=== PATIENT | female | born 1935 | race Caucasian/White ===

== ENCOUNTER 2016-10-25 09:08 | Emergency (ER) | payer OTHER, MEDICARE, BC ==
[2016-10-25] MEDS ORDERED: NAPROXEN 250 MG TABLET PO ONE (10:07)
--- NOTE | 2016-10-25 10:22 | ER Document Report ---
ED Extremity Problem, Upper - General Chief Complaint: Arm Pain Stated Complaint: LEFT ARM PAIN Notes: The patient is a 81-year-old female, past medical history hypertension, prior left shoulder pain from rotator cuff injury 4 years ago, presents with 1 day of left shoulder pain that started when she woke up this morning. She says the pain is worse when she moves. She did not take her blood pressure medications this morning and did not take any anti-inflammatories this morning. Denies numbness, tingling, injury, chest pain, shortness of breath, back pain, nausea or vomiting. TRAVEL OUTSIDE OF THE [place] IN LAST 30 DAYS: No - Related Data Allergies/Adverse Reactions: iodine Allergy (Verified 10/25/16 09:24) Penicillins Allergy (Verified 10/25/16 09:24) Past Medical History - General Information source: Patient - Social History Smoking Status: Former Smoker Chew tobacco use (# tins/day): No Frequency of alcohol use: None Drug Abuse: None Family History: Reviewed & Not Pertinent - Past Medical History Cardiac Medical History: Reports: Hx Hypercholesterolemia, Hx Hypertension Pulmonary Medical History: Reports: Hx COPD Endocrine Medical History: Comment Only: Hx Diabetes Mellitus Type 2 - prediabetes Renal/ Medical History: Denies: Hx Peritoneal Dialysis Past Surgical History: Reports: Hx Abdominal Surgery - hernia repair, Hx Appendectomy, Hx Cholecystectomy, Hx Gynecologic Surgery - hysterectomy, Hx Hysterectomy, Hx Orthopedic Surgery - ankle - Immunizations Hx Diphtheria, Pertussis, Tetanus Vaccination: Yes Review of Systems - Review of Systems Notes: REVIEW OF SYSTEMS: CONSTITUTIONAL: -fevers, -chills EENT: -eye pain, -difficulty swallowing, -nasal congestion CARDIOVASCULAR:-chest pain, -syncope. RESPIRATORY: -cough, -SOB GASTROINTESTINAL: -abdominal pain, - nausea, -vomiting, -diarrhea GENITOURINARY: -dysuria, -hematuria MUSCULOSKELETAL: +left shoulder pain, -back pain, -neck pain SKIN: -rash or skin lesions. HEMATOLOGIC: -easy bruising or bleeding. LYMPHATIC: -swollen, enlarged glands. NEUROLOGICAL: -altered mental status or loss of consciousness, -headache, - neurologic symptoms PSYCHIATRIC: -anxiety, -depression. ALL OTHER SYSTEMS REVIEWED AND NEGATIVE. Physical Exam - Vital signs Vitals: Temp Pulse Resp BP Pulse Ox 97.3 F 89 18 166/65 H 98 10/25/16 09:20 10/25/16 09:20 10/25/16 09:20 10/25/16 09:20 10/25/16 09:20 - Notes Notes: PHYSICAL EXAMINATION: GENERAL: Well-appearing, well-nourished and in no acute distress. HEAD: Atraumatic, normocephalic. EYES: Pupils equal round and reactive to light, extraocular movements intact, sclera anicteric, conjunctiva are normal. ENT: nares patent, oropharynx clear without exudates. Moist mucous membranes. NECK: Normal range of motion, supple without lymphadenopathy LUNGS: Breath sounds clear to auscultation bilaterally and equal. No wheezes rales or rhonchi. HEART: Regular rate and rhythm without murmurs ABDOMEN: Soft, nontender, normoactive bowel sounds. No guarding, no rebound. No masses appreciated. EXTREMITIES: Tenderness over left anterior shoulder and AC joint, painful shoulder flexion and extension, strong distal pulses, no pitting or edema. No cyanosis. NEUROLOGICAL: Cranial nerves grossly intact. Normal speech, normal gait. Normal sensory, motor, and reflex exams. PSYCH: Normal mood, normal affect. SKIN: Warm, Dry, normal turgor, no rashes or lesions noted. Course - Re-evaluation Re-evalutation: Shoulder x-ray does not show any acute fractures. Prior shoulder x-ray showed rotator cuff injuries and AC joint inflammation. EKG does not show any evidence of acute ACS. Instructed patient to begin anti-inflammatories, take her blood pressure medications when she gets home and follow-up with orthopedics if her pain does not improve. - Vital Signs Vital signs: Temp Pulse Resp BP Pulse Ox 97.3 F 89 18 166/65 H 98 10/25/16 09:20 10/25/16 09:20 10/25/16 09:20 10/25/16 09:20 10/25/16 09:20 - Diagnostic Test Radiology reviewed: Image reviewed, Reports reviewed Radiology results interpreted by me: Left shoulder x-ray: NAD - EKG Interpretation by Me EKG shows normal: Sinus rhythm, [place], Intervals, QRS Complexes, ST-T Waves Rate: Normal Discharge - Discharge Clinical Impression: Left shoulder pain Qualifiers: Chronicity: unspecified Qualified Code(s): M25.512 - Pain in left shoulder Condition: Stable Disposition: HOME, SELF-CARE Additional Instructions: Take Naprosyn with food to help with your shoulder pain. Follow-up with the orthopedic surgeon for further evaluation and treatment. SPRAIN: Your injury is a sprain. A sprain results from stretching or tearing of the ligaments, usually from a twisting injury. The ligaments will require time and protection in order to heal properly. Many sprains are quite disabling and should be taken seriously. The usual initial treatment of sprains is cold packs, elevation, and rest of the injured area. Your physician has assessed the seriousness of your ligament injury, and has outlined a treatment plan. Understand that this treatment may change, depending on how you progress. If a re-examination was recommended, it is important that you follow up as instructed. Call the doctor any time if there is severe pain, numbness, or loss of function in the injured area. ICE & ELEVATION: Apply ice packs frequently against the painful area. Many different schedules are recommended, such as "20 minutes on, 20 minutes off" or "one hour ice, two hours rest." If you need to work, you may need to go longer between ice treatments. You should plan to have the area ice packed AT LEAST one- fourth of the time. The ice should be applied over the wrap, tape, or splint, or over a layer of cloth -- not directly against the skin. Some ice bags have a built-in cloth and can be put directly on the skin. Your injured part should be elevated as much as possible over the next 48 hours. Try to keep the injury above the level of the heart. Avoid use of the injured area. Elevation and rest will decrease the swelling. USE OF [id number] IBUPROFEN: Ibuprofen (Advil, Nuprin, Medipren, Motrin IB) is a medication for fever and pain control. In addition, it has anti- inflammatory effects which may be beneficial, especially in the treatment of injuries. It's best to take ibuprofen with food. Persons with ulcer disease or allergy to aspirin should notify their physician of this before taking ibuprofen. Ibuprofen can be given every four to six hours, for a total of four doses daily. Age Pain or fever dose Antiinflammatory dose 6-8 yr 200 mg (1 tab) 200 mg (1 tab) 9-11 yr 200 mg (1 tab) 200-400 mg (1-2 tab) 11-14 yr 200-400 mg (1-2 tab) 400 mg (2 tab) 15-adult 400 mg (2 tab) 600 mg (3 tab) FOLLOW-UP CARE: If you have been referred to a physician for follow-up care, call the physician s office for an appointment as you were instructed or within the next two days. If you experience worsening or a significant change in your symptoms, notify the physician immediately or return to the Emergency Department at any time for re-evaluation. Referrals: SILVIA FRITZ, [ACTIVE STAFF] - Follow up as needed
[2016-10-25 11:43] VITALS: BP 147/70
--- NOTE | 2016-10-25 22:20 | EKG REPORT ---
SEVERITY:- NORMAL ECG - SINUS RHYTHM : Confirmed by: Howard Forte MD 25-Oct-2016 17:30:23
== END 2016-10-25 11:43 | disposition home or self-care (01) ==
LOC: ER 09:08
DX: M25.512 Pain in left shoulder (principal); J44.9 Chronic obstructive pulmonary disease, unspecified; Z87.891 Personal history of nicotine dependence; Z90.710 Acquired absence of both cervix and uterus; Z90.49 Acquired absence of other specified parts of digestive tract; Z87.442 Personal history of urinary calculi; Z88.0 Allergy status to penicillin
CPT/HCPCS: 93005; 93010; 99284

== ENCOUNTER 2019-03-06 10:32 | Observation (INO) | payer BC, MEDICARE, OTHER ==
[2019-03-06] MEDS ORDERED: ASPIRIN 81 MG TABLET, CHEWABLE PO ONE (10:57)
--- NOTE | 2019-03-06 11:01 | ER Document Report ---
ED Medical Screen (RME) - General Chief Complaint: Chest Pain Stated Complaint: CHEST PAIN Time Seen by Provider: 03/06/19 10:50 Primary Care Provider: EDOUARD MCALLISTER [Primary Care Provider] - Follow up as needed Notes: Patient is an 84-year-old female who presents to the emergency department with a chief complaint of on-and-off chest pain. She has had her pain for the past week and she states that she feels that they are "twinges" in her chest. She denies any nausea or vomiting. Denies any prior history of a myocardial infarction. 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 Denies any shortness of breath or difficulty breathing. Patient has past medical history of diabetes, hypertension, COPD, insomnia, renal cysts. Exam: S1, S2. I have greeted and performed a rapid initial assessment of this patient. A comprehensive ED assessment and evaluation of the patient, analysis of test results and completion of medical decision making process will be conducted by an additional ED providers. TRAVEL OUTSIDE OF THE [place] IN LAST 30 DAYS: No - Related Data Allergies/Adverse Reactions: iodine Allergy (Verified 10/25/16 09:24) Penicillins Allergy (Verified 10/25/16 09:24) Past Medical History - Past Medical History Cardiac Medical History: Reports: Hx Hypercholesterolemia, Hx Hypertension Pulmonary Medical History: Reports: Hx COPD Endocrine Medical History: Comment Only: Hx Diabetes Mellitus Type 2 - prediabetes Renal/ Medical History: Denies: Hx Peritoneal Dialysis Past Surgical History: Reports: Hx Abdominal Surgery - hernia repair, Hx Appendectomy, Hx Cholecystectomy, Hx Gynecologic Surgery - hysterectomy, Hx Hysterectomy, Hx Orthopedic Surgery - ankle - Immunizations Hx Diphtheria, Pertussis, Tetanus Vaccination: Yes Physical Exam - Vital signs Vitals: Temp Pulse Resp BP Pulse Ox 97.9 F 82 17 169/80 H 96 03/06/19 10:44 03/06/19 10:44 03/06/19 10:44 03/06/19 10:44 03/06/19 10:44 Course - Vital Signs Vital signs: Temp Pulse Resp BP Pulse Ox 97.9 F 82 17 169/80 H 96 03/06/19 10:44 03/06/19 10:44 03/06/19 10:44 03/06/19 10:44 03/06/19 10:44 Doctor's Discharge - Discharge Referrals: LOCALMD,NO [Primary Care Provider] - Follow up as needed
--- NOTE | 2019-03-06 11:51 | RADIOLOGY REPORT (SQ) ---
EXAM DESCRIPTION: CHEST SINGLE VIEW COMPLETED DATE/TIME: 03/06/2019 11:30 am REASON FOR STUDY: chest pain COMPARISON: 10/24/2011. EXAM PARAMETERS: NUMBER OF VIEWS: One view. TECHNIQUE: Single frontal radiographic view of the chest acquired. RADIATION DOSE: NA LIMITATIONS: None. FINDINGS: LUNGS AND PLEURA: No opacities, masses or pneumothorax. No pleural effusion. MEDIASTINUM AND HILAR STRUCTURES: No masses. Contour normal. HEART AND VASCULAR STRUCTURES: Heart upper limits of normal in size. Normal vasculature. BONES: No acute findings. HARDWARE: None in the chest. OTHER: No other significant finding. IMPRESSION: NO ACUTE RADIOGRAPHIC FINDING IN THE CHEST. TECHNICAL DOCUMENTATION: JOB ID: [id number] [employer]- All Rights Reserved Reading location - IP/workstation name: [email or web address]
--- NOTE | 2019-03-06 12:22 | ER Document Report ---
ED Cardiac - General Chief Complaint: Chest Pain Stated Complaint: CHEST PAIN Time Seen by Provider: 03/06/19 10:50 Primary Care Provider: EDOUARD MCALLISTER [NO LOCAL MD] - Follow up as needed TRAVEL OUTSIDE OF THE [place] IN LAST 30 DAYS: No - HPI Notes: Patient is a 84-year-old female that presents to the emergency department for chief complaint of chest pain. Patient reports being woken from sleep with a left-sided chest pain around 4 AM this morning. The pain was constant until about 1130. Currently she states the pain is gone. She describes it as a sharp sensation just to the left of her sternum. It did not radiate. She denied associated shortness of breath diaphoresis nausea or vomiting. Patient denies history of heart catheterization or bypass. She states she was told she had a mild IN a few years ago. She believes she had a heart catheterization in January 2018 that was normal. She denies any recent surgery, travel, immobilization, lower extremity pain or swell ing, and history of DVT/PE. Patient states that she had been having chest pain similar to this intermittently over the last week but it became more constant today. Past Medical History: Diabetes, hypertension, hyperlipidemia, COPD Past Surgical History: Cholecystectomy, appendectomy, hysterectomy, hernia repair Social History: Quit tobacco use 4 years ago. Denies alcohol use. Lives at home independently Family History: Reviewed and noncontributory for presenting illness Allergies: Reviewed, see documented allergy list. REVIEW OF SYSTEMS: CONSTITUTIONAL : No fever No chills No diaphoresis No recent illness EENT: No vision changes No congestion No sore throat CARDIOVASCULAR: chest pain No palpitations RESPIRATORY: No shortness of breath No cough No difficulty breathing GASTROINTESTINAL: No abdominal pain No nausea No vomiting No diarrhea GENITOURINARY: No dysuria No hematuria No difficulty urinating MUSCULOSKELETAL: No back pain No leg pain No arm pain SKIN: No rashes No lesions LYMPHATIC: No swollen, enlarged glands. NEUROLOGICAL: No lightheadedness No headache No weakness No paresthesias PSYCHIATRIC: No anxiety No depression PHYSICAL EXAMINATION: Vital signs reviewed, nursing noted reviewed. GENERAL: Well-appearing, well-nourished and in no acute distress. HEAD: Atraumatic, normocephalic. EYES: Eyes appear normal, extraocular movements intact, sclera anicteric, conjunctiva are normal. ENT: nares patent, oropharynx clear without exudates. Moist mucous membranes. NECK: Normal range of motion, supple without lymphadenopathy LUNGS: Mild sternal and left anterior chest wall tenderness without crepitus or deformity, breath sounds clear to auscultation bilaterally and equal. No wheezes rales or rhonchi. HEART: Regular rate and rhythm without murmurs, +2/4 bilateral radial pulses ABDOMEN: Soft, nontender, normoactive bowel sounds. No rebound, guarding, or rigidity. No masses appreciated. EXTREMITIES: Nontender, good range of motion, no pitting or edema. NEUROLOGICAL: No focal neurological deficits. Moves all extremities spontaneously Motor and sensory grossly intact on exam. PSYCH: Normal mood, normal affect. SKIN: Warm, Dry, normal turgor, no rashes or lesions noted on exposed skin - Related Data Allergies/Adverse Reactions: iodine Allergy (Verified 10/25/16 09:24) Penicillins Allergy (Verified 10/25/16 09:24) Past Medical History - Social History Smoking Status: Former Smoker - quit 4 years ago Family History: Reviewed & Not Pertinent - Past Medical History Cardiac Medical History: Reports: Hx Hypercholesterolemia, Hx Hypertension Pulmonary Medical History: Reports: Hx COPD Endocrine Medical History: Comment Only: Hx Diabetes Mellitus Type 2 - pre diabetes Renal/ Medical History: Denies: Hx Peritoneal Dialysis Past Surgical History: Reports: Hx Abdominal Surgery - hernia repair, Hx Appendectomy, Hx Cholecystectomy, Hx Gynecologic Surgery - hysterectomy, Hx Hysterectomy, Hx Orthopedic Surgery - ankle - Immunizations Hx Diphtheria, Pertussis, Tetanus Vaccination: Yes Physical Exam - Vital signs Vitals: Temp Pulse Resp BP Pulse Ox 97.9 F 82 17 169/80 H 96 03/06/19 10:44 03/06/19 10:44 03/06/19 10:44 03/06/19 10:44 03/06/19 10:44 Course - Re-evaluation Re-evalutation: 03/06/19 12:20 Vitals reviewed. Nursing notes reviewed. Patient is chest pain-free on my evaluation. She did receive aspirin in triage. She is on telemetry monitoring. Patient's EKG shows no significant change from prior on 10/25/2016. 03/06/19 13:25 Patient reevaluated and has remained pain-free since my initial evaluation. Her cardiac work-up shows a negative first troponin. She has no severe anemia. Her chest x-ray shows no acute cardiopulmonary process. Patient's heart score is 5 and she will be admitted to the hospital for further cardiac evaluation. Her care was discussed with Dr. Cervantes. Laboratory 03/06/19 03/06/19 03/06/19 12:02 12:02 12:02 WBC 8.2 RBC 4.29 Hgb 13.3 Hct 39.0 MCV 91 MCH 31.0 MCHC 34.1 RDW 12.9 Plt Count 319 Seg Neutrophils % 74.3 Lymphocytes % 15.5 Monocytes % 8.9 Eosinophils % 0.7 Basophils % 0.6 Absolute Neutrophils 6.1 Absolute Lymphocytes 1.3 Absolute Monocytes 0.7 Absolute Eosinophils 0.1 Absolute Basophils 0.0 Sodium 136.5 L Potassium 4.5 Chloride 99 Carbon Dioxide 29 Anion Gap 9 BUN 18 Creatinine 1.10 Est GFR ( Amer) 58 L Est GFR (Non-Af Amer) 48 L Glucose 149 H Calcium 9.0 Total Bilirubin 0.4 Direct Bilirubin 0.3 Neonat Total Bilirubin Not Reportable Neonat Direct Bilirubin Not Reportable Neonat Indirect Bili Not Reportable AST 22 ALT 16 Alkaline Phosphatase 78 Troponin I < 0.012 Total Protein 6.5 Albumin 3.6 Chest X-Ray 03/06/19 10:58 IMPRESSION: NO ACUTE RADIOGRAPHIC FINDING IN THE CHEST. - Vital Signs Vital signs: Temp Pulse Resp BP Pulse Ox 97.9 F 82 16 169/80 H 95 03/06/19 10:44 03/06/19 10:44 03/06/19 12:00 03/06/19 10:44 03/06/19 12:00 - Laboratory Result Diagrams: 03/06/19 12:02 03/06/19 12:02 Laboratory results interpreted by me: 03/06/19 12:02 Sodium 136.5 L Est GFR ( Amer) 58 L Est GFR (Non-Af Amer) 48 L Glucose 149 H - EKG Interpretation by Me Additional EKG results interpreted by me: 03/06/19 12:21 Interpreted by myself 1039: Normal sinus rhythm, rate 81, normal axis, no ectopy, no STEMI, no significant change from 10/25/2016 Discharge - Discharge Clinical Impression: Chest pain Qualifiers: Chest pain type: unspecified Qualified Code(s): R07.9 - Chest pain, unspecified Condition: Stable Disposition: ADMITTED OBSERVATION Admitting Provider: Helen (Hospitalist) Unit Admitted: Telemetry Referrals: LOCALMD,NO [NO LOCAL MD] - Follow up as needed
[2019-03-06 12:26] LABS: ABSOLUTE EOSINOPHILS # (AUTO) 0.1 10^3/uL (0.0-0.6); ABSOLUTE LYMPHOCYTES (AUTO) 1.3 10^3/uL (0.5-4.7); ABSOLUTE MONOCYTES (AUTO) 0.7 10^3/uL (0.1-1.4); ABSOLUTE NEUT (AUTO) 6.1 10^3/uL (1.7-8.2); BASOPHILS % (AUTO) 0.6 % (0-2); EOSINOPHILS % (AUTO) 0.7 % (0-6); HEMOGLOBIN 13.3 g/dL (12.0-15.5); LYMPHOCYTES % (AUTO) 15.5 % (13-45); MEAN CORPUSCULAR HGB CONC 34.1 g/dL (32.0-36.0); MEAN CORPUSCULAR VOLUME 91 fl (80-97); MONOCYTES % (AUTO) 8.9 % (3-13); PLATELET COUNT 319 10^3/uL (150-450); RED BLOOD COUNT 4.29 10^6/uL (3.72-5.28); RED CELL DISTRIBUTION WIDTH 12.9 % (11.5-14.0); SEGMENTED NEUTROPHILS % (AUTO) 74.3 % (42-78); TOTAL CELLS COUNTED % (AUTO) 100 %; WHITE BLOOD COUNT 8.2 10^3/uL (4.0-10.5)
[2019-03-06 12:47] LABS: ALBUMIN 3.6 g/dL (3.5-5.0); ALKALINE PHOSPHATASE 78 U/L (38-126); ANION GAP 9 (5-19); ASPARTATE AMINO TRANSFERASE 22 U/L (14-36); BILIRUBIN,DIRECT 0.3 mg/dL (0.0-0.4); BILIRUBIN,TOTAL 0.4 mg/dL (0.2-1.3); BLOOD UREA NITROGEN 18 mg/dL (7-20); CARBON DIOXIDE 29 mmol/L (22-30); CHLORIDE 99 mmol/L (98-107); GLUCOSE 149 mg/dL (75-110); POTASSIUM 4.5 mmol/L (3.6-5.0); TOTAL PROTEIN 6.5 g/dL (6.3-8.2)
[2019-03-06] MEDS ORDERED: ONDANSETRON HCL INJ/PF 4 MG/2 ML SDV IV PRN (14:00)
[2019-03-06] MEDS ORDERED: LEVALBUTEROL HCL NEB 0.63 MG/3 ML AMPUL NEB PRN (14:00)
[2019-03-06] MEDS ORDERED: OXYCODONE-ACETAMINOPHEN 5-325 MG TABLET PO PRN (14:00)
[2019-03-06] MEDS ORDERED: TEMAZEPAM 15 MG CAPSULE PO PRN (14:00)
--- NOTE | 2019-03-06 14:00 | PDOC H&P ---
History of Present Illness Admission Date/PCP: 03/06/19 13:34 ANIL JASON NP History of Present Illness: KAMERON PACE is a 84 year old female patient whose past medical history of obesity, hypertension, hyperlipidemia, COPD and type 2 diabetes mellitus presented with chief complaint of chest pain. Patient states that she has been in her usual baseline state of health up until 4 weeks when she started to have intermittent chest pain described as aching and pressure-like. But this morning at about 4 AM patient started to have pressure-like chest pain which is constant and prompted her to come to ER. The pain is about 5 out of 10 on pain scale localized to her left precordium nonradiating and no aggravating or relieving factors. The chest pain is not associated with deep breathing, palpitation or diaphoresis. She reported that she had had cardiac cath in January of 2018 and reportedly it was normal. Patient quit smoking 4 years ago and she has been on metered-dose inhaler. She denies any chills, fever, cough, nausea, vomiting, abdominal pain, diarrhea, urinary complaint is, dizziness, headache, blurry vision or seizure activity. Past Medical History Cardiac Medical History: Reports: Hyperlipidema, Hypertension Pulmonary Medical History: Reports: Chronic Obstructive Pulmonary Disease (COPD) Endocrine Medical History: Comment Only: Diabetes Mellitus Type 2 - prediabetes Past Surgical History Past Surgical History: Reports: Appendectomy, Cholecystectomy, Hysterectomy, Orthopedic Surgery - ankle Social History Smoking Status: Former Smoker - quit 4 years ago - Advance Directive Resuscitation Status: Full Code Family History Family History: Reviewed & Not Pertinent Parental Family History Reviewed: Yes Children Family History Reviewed: Yes Sibling(s) Family History Reviewed.: Yes Medication/Allergy Home Medications: Chlorthalidone [Hygroton 25 mg Tablet] 25 mg PO DAILY 03/06/19 Ipratropium/Albuterol Sulfate [Combivent Respimat 4 gm Mdi] 1 puff IH QIDP PRN 03/06/19 Losartan Potassium 100 mg PO DAILY 03/06/19 Metoprolol Succinate [Toprol Xl 25 mg Tab.sr] 25 mg PO DAILY 03/06/19 Pravastatin Sodium 40 mg PO DAILY 03/06/19 Spironolactone [Aldactone 25 mg Tablet] 25 mg PO DAILY 03/06/19 Allergies/Adverse Reactions: iodine Allergy (Verified 10/25/16 09:24) Penicillins Allergy (Verified 10/25/16 09:24) Review of Systems Constitutional: ABSENT: chills, fever(s), headache(s), weight gain, weight loss Eyes: ABSENT: visual disturbances Ears: ABSENT: hearing changes Cardiovascular: PRESENT: chest pain Respiratory: ABSENT: cough, hemoptysis Gastrointestinal: ABSENT: abdominal pain, constipation, diarrhea, hematemesis, hematochezia, nausea, vomiting Genitourinary: ABSENT: dysuria, hematuria Musculoskeletal: ABSENT: joint swelling Integumentary: ABSENT: rash, wounds Neurological: ABSENT: abnormal gait, abnormal speech, confusion, dizziness, focal weakness, syncope Psychiatric: ABSENT: anxiety, depression, homidical ideation, suicidal ideation Endocrine: ABSENT: cold intolerance, heat intolerance, polydipsia, polyuria Hematologic/Lymphatic: ABSENT: easy bleeding, easy bruising Physical Exam Vital Signs: Temp Pulse Resp BP Pulse Ox 97.9 F 82 16 169/80 H 95 03/06/19 10:44 03/06/19 10:44 03/06/19 12:00 03/06/19 10:44 03/06/19 12:00 Intake & Output 03/05/19 03/06/19 03/07/19 06:59 06:59 06:59 Weight 99.9 kg General appearance: PRESENT: no acute distress, obese, well-developed, well- nourished Head exam: PRESENT: atraumatic, normocephalic Eye exam: PRESENT: conjunctiva pink, EOMI, PERRLA. ABSENT: scleral icterus Ear exam: PRESENT: normal external ear exam Mouth exam: PRESENT: moist, tongue midline Neck exam: ABSENT: carotid bruit, JVD, lymphadenopathy, thyromegaly Respiratory exam: PRESENT: clear to auscultation raheem. ABSENT: rales, rhonchi, wheezes Cardiovascular exam: PRESENT: RRR. ABSENT: diastolic murmur, rubs, systolic murmur Pulses: PRESENT: normal dorsalis pedis pul Vascular exam: PRESENT: normal capillary refill GI/Abdominal exam: PRESENT: normal bowel sounds, soft. ABSENT: distended, guarding, mass, organolmegaly, rebound, tenderness Rectal exam: PRESENT: deferred Extremities exam: PRESENT: full ROM. ABSENT: calf tenderness, clubbing, pedal edema Neurological exam: PRESENT: alert, awake, oriented to person, oriented to place, oriented to time, oriented to situation, CN II-XII grossly intact. ABSENT: motor sensory deficit Psychiatric exam: PRESENT: appropriate affect, normal mood. ABSENT: homicidal ideation, suicidal ideation Skin exam: PRESENT: dry, intact, warm. ABSENT: cyanosis, rash Results Laboratory Results: 03/06/19 12:02 03/06/19 12:02 03/06/19 03/06/19 12:02 12:02 WBC 8.2 RBC 4.29 Hgb 13.3 Hct 39.0 MCV 91 MCH 31.0 MCHC 34.1 RDW 12.9 Plt Count 319 Seg Neutrophils % 74.3 Lymphocytes % 15.5 Monocytes % 8.9 Eosinophils % 0.7 Basophils % 0.6 Absolute Neutrophils 6.1 Absolute Lymphocytes 1.3 Absolute Monocytes 0.7 Absolute Eosinophils 0.1 Absolute Basophils 0.0 Sodium 136.5 L Potassium 4.5 Chloride 99 Carbon Dioxide 29 Anion Gap 9 BUN 18 Creatinine 1.10 Est GFR ( Amer) 58 L Est GFR (Non-Af Amer) 48 L Glucose 149 H Calcium 9.0 Total Bilirubin 0.4 AST 22 Alkaline Phosphatase 78 Total Protein 6.5 Albumin 3.6 03/06/19 12:02 Troponin I < 0.012 Impressions: Chest X-Ray 03/06/19 10:58 IMPRESSION: NO ACUTE RADIOGRAPHIC FINDING IN THE CHEST. Assessment and Plan - Diagnosis (1) Chest pain Is this a current diagnosis for this admission?: Yes Plan: Patient has multiple risk factor for acute coronary syndrome it is appropriate to keep her for observation. We will do serial EKG and serial troponin. Patient will be subjected to cardiac stress test in the morning. (2) Hypertension Qualifiers: Hypertension type: essential hypertension Qualified Code(s): I10 - Essential (primary) hypertension Is this a current diagnosis for this admission?: Yes Plan: Continue her home medication (3) Hyperlipidemia Qualifiers: Hyperlipidemia type: unspecified Qualified Code(s): E78.5 - Hyperlipidemia, unspecified Is this a current diagnosis for this admission?: Yes Plan: We will start her on her home med (4) COPD (chronic obstructive pulmonary disease) Qualifiers: Emphysema type: unspecified Is this a current diagnosis for this admission?: Yes Plan: We will put her on PRN bronchodilators. (5) Obesity (BMI 30.0-34.9) Is this a current diagnosis for this admission?: Yes Plan: Lifestyle modification advised. (6) Type 2 diabetes mellitus Is this a current diagnosis for this admission?: Yes Plan: Continue her home meds.
[2019-03-06] MEDS ORDERED: GLUCAGON,HUMAN RECOMB 1 MG INJ IM PRN (14:05)
[2019-03-06] MEDS ORDERED: DEXTROSE 40% GEL 15 GM TUBE PO PRN ×2 (14:05)
[2019-03-06] MEDS ORDERED: DEXTROSE 50%-WATER 25 GM/50 ML DISP.SYRIN IV PRN ×2 (14:05)
[2019-03-06] MEDS: ENOXAPARIN SODIUM INJ 40 MG/0.4 ML DISP.SYRIN SUBCUT SCH (15:47)
[2019-03-06] MEDS: INSULIN LISPRO 100 UNIT/ML 3 ML VIAL SUBCUT SCH ×2 (17:36→21:49)
[2019-03-06] MEDS: DOCUSATE SODIUM 100 MG CAPSULE PO SCH (17:36)
[2019-03-06] MEDS: FAMOTIDINE 20 MG TABLET PO SCH (21:49)
--- NOTE | 2019-03-06 23:12 | EKG REPORT ---
SEVERITY:- NORMAL ECG - SINUS RHYTHM : Confirmed by: Leticia Keyes MD 06-Mar-2019 23:11:29
[2019-03-07 03:22] LABS: CHOLESTEROL 142.19 mg/dL (0-200); TRIGLYCERIDES 171 mg/dL (<150)
[2019-03-07 03:35] LABS: DIRECT LDL 88 mg/dL (<100)
[2019-03-07 03:43] LABS: VLDL CHOLESTEROL 34.2 mg/dL (10-31)
[2019-03-07] MEDS ORDERED: REGADENOSON INJ 0.4 MG/5 ML DISP.SYRIN IV ONE (11:47)
[2019-03-07] MEDS: FAMOTIDINE 20 MG TABLET PO SCH (13:20)
[2019-03-07] MEDS: DOCUSATE SODIUM 100 MG CAPSULE PO SCH (13:22)
[2019-03-07] MEDS: ENOXAPARIN SODIUM INJ 40 MG/0.4 ML DISP.SYRIN SUBCUT SCH (13:22)
[2019-03-07] MEDS: INSULIN LISPRO 100 UNIT/ML 3 ML VIAL SUBCUT SCH (13:23)
[2019-03-07] MEDS ORDERED: ONDANSETRON HCL INJ/PF 4 MG/2 ML SDV IV PRN (14:30)
--- NOTE | 2019-03-07 15:50 | DRAGON STRESS TEST REPORT ---
Intravenous Lexiscan Cardiolite stress test using single photon emmision computerized tomography. Date of procedure: 03/07/2019. Ordering Provider: Dr. Cervantes. Patient's status: In Patient Indication: Chest pain. Coronary risk factors:. Age, diabetes mellitus, hypertension, dyslipidemia. Resting EKG: Sinus rhythm. No acute changes. Poor R wave leads V1 to V6. Stress EKG: No changes of ischemia. Patient had no chest pain or discomfort, and there were no arrhythmias seen. Reason for termination: Protocol. Conclusions: Normal EKG and hemodynamic response to IV Lexiscan. Nuclear data: At rest the patient was given 14.13 millicuries of technetium 99m sestamibi injected intravenously. As per protocol rest non gated SPECT images were obtained. Subsequently the patient was given intravenous Lexiscan at a dose of 0.4 mg in 5 mL intravenously, followed by flush with normal saline. Subsequently the stress dose of 43.3 millicuries of technetium 99m sestamibi was injected intravenously. As per protocol stress gated images were obtained. Nuclear interpretation: Review of images showed that all segments of the myocardium had normal perfusion at rest, and normal perfusion post stress with IV Lexiscan. All segments of the myocardium had normal motion, contraction, and thickening by gated study. T. I D. ratio was normal at 0.95. There is no transient ischemic dilatation of the left ventricle. Computer read rest, and stress left ventricular ejection fraction were 64 %, and 58 %, respectively. Conclusion: 1. There is no scintigraphic evidence of Lexiscan induced myocardial ischemia. 2. There is no scintigraphic evidence of myocardial infarction/scar. Recommendations: Aggressive risk factor modification, and treating the underlying co- morbidities. MTDD
--- NOTE | 2019-03-07 16:09 | PDOC DISCHARGE SUMMARY ---
General - Admit/Disc Date/PCP Admission Date/Primary Care Provider: 03/06/19 13:34 ANIL JASON NP Discharge Date: 03/07/19 - Discharge Diagnosis (1) Chest pain Is this a current diagnosis for this admission?: Yes (2) Hypertension Is this a current diagnosis for this admission?: Yes (3) Hyperlipidemia Is this a current diagnosis for this admission?: Yes (4) COPD (chronic obstructive pulmonary disease) Is this a current diagnosis for this admission?: Yes (5) Obesity (BMI 30.0-34.9) Is this a current diagnosis for this admission?: Yes (6) Type 2 diabetes mellitus Is this a current diagnosis for this admission?: Yes - Additional Information Resuscitation Status: Full Code Home Medications: Aspirin [Ecotrin 81 mg EC Tablet] 81 mg PO DAILY 03/06/19 Chlorthalidone [Hygroton 25 mg Tablet] 25 mg PO DAILY 03/06/19 Ipratropium/Albuterol Sulfate [Combivent Respimat 4 gm Mdi] 1 puff IH QIDP PRN 03/06/19 Losartan Potassium 100 mg PO QHS 03/06/19 Metoprolol Succinate [Toprol Xl 25 mg Tab.sr] 25 mg PO DAILY 03/06/19 Multivitamin [Tab-A-Rasheed (Multiple Vitamin) Tablet] 1 tab PO DAILY 03/06/19 Pravastatin Sodium 40 mg PO QHS 03/06/19 Spironolactone [Aldactone 25 mg Tablet] 25 mg PO DAILY 03/06/19 History of Present Illness History of Present Illness: KAMERON PACE is a 84 year old female patient whose past medical history of obesity, hypertension, hyperlipidemia, COPD and type 2 diabetes mellitus presented with chief complaint of chest pain. Patient states that she has been in her usual baseline state of health up until 4 weeks when she started to have intermittent chest pain described as aching and pressure-like. But this morning at about 4 AM patient started to have pressure-like chest pain which is constant and prompted her to come to ER. The pain is about 5 out of 10 on pain scale localized to her left precordium nonradiating and no aggravating or relieving factors. The chest pain is not associated with deep breathing, palpitation or diaphoresis. She reported that she had had cardiac cath in January of 2018 and reportedly it was normal. Patient quit smoking 4 years ago and she has been on metered-dose inhaler. She denies any chills, fever, cough, nausea, vomiting, abdominal pain, diarrhea, urinary complaint is, dizziness, headache, b lurry vision or seizure activity. Hospital Course Hospital Course: KAMERON PACE is a 84 year old female patient whose past medical history of obesity, hypertension, hyperlipidemia, COPD and type 2 diabetes mellitus presented with chief complaint of chest pain. Patient states that she has been in her usual baseline state of health up until 4 weeks when she started to have intermittent chest pain described as aching and pressure-like. But this morning at about 4 AM patient started to have pressure-like chest pain which is constant and prompted her to come to ER. The pain is about 5 out of 10 on pain scale localized to her left precordium nonradiating and no aggravating or relieving factors. The chest pain is not associated with deep breathing, palpitation or diaphoresis. She reported that she had had cardiac cath in January of 2018 and reportedly it was normal. Patient quit smoking 4 years ago and she has been on metered-dose inhaler. She denies any chills, fever, cough, nausea, vomiting, abdominal pain, diarrhea, urinary complaint is, dizziness, headache, blurry vision or seizure activity. 03/07/2019: Patient seen resting in bed comfortably. She is awake alert oriented. She is not in pain or distress. She states that her chest pain has resolved. Her 3 sets of cardiac enzymes are negative and no EKG changes. Alison chino patient undergone cardiac stress test and is is negative for reversible ischemia. Physical Exam Vital Signs: Temp Pulse Resp BP Pulse Ox 98.1 F 74 18 128/55 H 95 03/07/19 07:14 03/07/19 08:10 03/07/19 07:14 03/07/19 07:14 03/07/19 07:14 Intake & Output 03/06/19 03/07/19 03/08/19 06:59 06:59 06:59 Intake Total 480 Balance 480 Weight 98 kg General appearance: PRESENT: no acute distress Head exam: PRESENT: atraumatic Neck exam: ABSENT: carotid bruit, JVD, lymphadenopathy, thyromegaly Respiratory exam: PRESENT: clear to auscultation raheem. ABSENT: rales, rhonchi, wheezes Cardiovascular exam: PRESENT: RRR. ABSENT: diastolic murmur, rubs, systolic mu rmur GI/Abdominal exam: PRESENT: normal bowel sounds, soft. ABSENT: distended, guarding, mass, organolmegaly, rebound, tenderness Neurological exam: PRESENT: alert, awake, oriented to person, oriented to place, oriented to time, oriented to situation Results Laboratory Results: 03/06/19 12:02 03/06/19 12:02 03/06/19 03/06/19 03/07/19 12:02 12:02 02:40 WBC 8.2 RBC 4.29 Hgb 13.3 Hct 39.0 MCV 91 MCH 31.0 MCHC 34.1 RDW 12.9 Plt Count 319 Seg Neutrophils % 74.3 Lymphocytes % 15.5 Monocytes % 8.9 Eosinophils % 0.7 Basophils % 0.6 Absolute Neutrophils 6.1 Absolute Lymphocytes 1.3 Absolute Monocytes 0.7 Absolute Eosinophils 0.1 Absolute Basophils 0.0 Sodium 136.5 L Potassium 4.5 Chloride 99 Carbon Dioxide 29 Anion Gap 9 BUN 18 Creatinine 1.10 Est GFR ( Amer) 58 L Est GFR (Non-Af Amer) 48 L Glucose 149 H Calcium 9.0 Total Bilirubin 0.4 AST 22 Alkaline Phosphatase 78 Total Protein 6.5 Albumin 3.6 Triglycerides 171 H Cholesterol 142.19 LDL Cholesterol Direct 88 VLDL Cholesterol 34.2 H HDL Cholesterol 38 L TSH 03/07/19 02:40 WBC RBC Hgb Hct MCV MCH MCHC RDW Plt Count Seg Neutrophils % Lymphocytes % Monocytes % Eosinophils % Basophils % Absolute Neutrophils Absolute Lymphocytes Absolute Monocytes Absolute Eosinophils Absolute Basophils Sodium Potassium Chloride Carbon Dioxide Anion Gap BUN Creatinine Est GFR ( Amer) Est GFR (Non-Af Amer) Glucose Calcium Total Bilirubin AST Alkaline Phosphatase Total Protein Albumin Triglycerides Cholesterol LDL Cholesterol Direct VLDL Cholesterol HDL Cholesterol TSH 3.21 03/06/19 03/06/19 03/06/19 12:02 14:27 19:59 Troponin I < 0.012 < 0.012 < 0.012 03/07/19 02:40 Troponin I < 0.012 Impressions: Chest X-Ray 03/06/19 10:58 IMPRESSION: NO ACUTE RADIOGRAPHIC FINDING IN THE CHEST. Qualifiers - * PATIENT BEING DISCHARGED WITH ANY OF THE FOLLOWING DIAGNOSIS: No Acute Heart Failure - Is this a Heart Failure Patient?: No LVEF < 40%?: No- if no continue to question #3 3. Anticoagulant therapy for permanect/persistent/paraoxysmal Afib or Aflutter: N/A
[2019-03-07 16:47] VITALS: BP 130/68
== END 2019-03-07 17:07 | disposition home or self-care (01) ==
LOC: ER 10:32 → EH 13:34 → 5 15:00
PROVIDERS: ADMIT Internal Medicine; ATTEND Internal Medicine
DX: R07.89 Other chest pain (principal); I10 Essential (primary) hypertension; E78.5 Hyperlipidemia, unspecified; J44.9 Chronic obstructive pulmonary disease, unspecified; E66.9 Obesity, unspecified; E11.9 Type 2 diabetes mellitus without complications; I25.2 Old myocardial infarction; Z68.34 Body mass index [BMI] 34.0-34.9, adult; Z79.82 Long term (current) use of aspirin; Z79.899 Other long term (current) drug therapy; Z87.891 Personal history of nicotine dependence; Z90.49 Acquired absence of other specified parts of digestive tract; Z98.890 Other specified postprocedural states
CPT/HCPCS: 93005; 99285; 36415 ×2; 82962 ×2; 84443; 85025; 80053; 84484 ×2; 83036; 80061; 93017; 71045; 78452; 93010; G0378 ×3; A9500; J2785; A9270 ×3; J1650; J3490; Q9969

== ENCOUNTER 2019-07-12 10:13 | Emergency (ER) | payer OTHER ==
[2019-07-12 10:54] LABS: ABSOLUTE LYMPHOCYTES (AUTO) 1.7 10^3/uL (0.5-4.7); ABSOLUTE MONOCYTES (AUTO) 0.9 10^3/uL (0.1-1.4); BASOPHILS % (AUTO) 0.3 % (0-2); EOSINOPHILS % (AUTO) 0.1 % (0-6); HEMATOCRIT 38.1 % (36.0-47.0); HEMOGLOBIN 12.8 g/dL (12.0-15.5); LYMPHOCYTES % (AUTO) 13.5 % (13-45); MEAN CORPUSCULAR HEMOGLOBIN 30.9 pg (27.0-33.4); MEAN CORPUSCULAR HGB CONC 33.5 g/dL (32.0-36.0); MEAN CORPUSCULAR VOLUME 92 fl (80-97); MONOCYTES % (AUTO) 7.3 % (3-13); PLATELET COUNT 310 10^3/uL (150-450); RED BLOOD COUNT 4.13 10^6/uL (3.72-5.28); RED CELL DISTRIBUTION WIDTH 13.4 % (11.5-14.0); SEGMENTED NEUTROPHILS % (AUTO) 78.8 % (42-78); TOTAL CELLS COUNTED % (AUTO) 100 %; WHITE BLOOD COUNT 12.7 10^3/uL (4.0-10.5)
[2019-07-12 11:06] LABS: ALBUMIN 3.7 g/dL (3.5-5.0); ALKALINE PHOSPHATASE 82 U/L (38-126); ANION GAP 12 (5-19); ASPARTATE AMINO TRANSFERASE 17 U/L (14-36); BILIRUBIN,DIRECT 0.1 mg/dL (0.0-0.4); BILIRUBIN,TOTAL 0.6 mg/dL (0.2-1.3); BLOOD UREA NITROGEN 22 mg/dL (7-20); CALCIUM 9.4 mg/dL (8.4-10.2); CARBON DIOXIDE 28 mmol/L (22-30); CHLORIDE 96 mmol/L (98-107); GLUCOSE 154 mg/dL (75-110); POTASSIUM 4.1 mmol/L (3.6-5.0); TOTAL PROTEIN 6.7 g/dL (6.3-8.2)
[2019-07-12] MEDS ORDERED: MORPHINE SULFATE 10 MG/ML INJ IV ONE ×2 (11:11→14:10)
[2019-07-12] MEDS ORDERED: KETOROLAC TROMETHAMINE INJ/PF 30 MG/1 ML SDV IV ONE (11:11)
[2019-07-12] MEDS ORDERED: ONDANSETRON HCL INJ/PF 4 MG/2 ML SDV IV ONE (11:11)
[2019-07-12 11:54] LABS: APPEARANCE,URINE CLOUDY; BILIRUBIN,URINE NEGATIVE (NEGATIVE); GLUCOSE, URINE NEGATIVE (NEGATIVE); KETONES,URINE TRACE mg/dL (NEGATIVE); LEUKOCYTE ESTERASE,URINE LARGE (NEGATIVE); NITRITE,URINE POSITIVE (NEGATIVE); PROTEIN,URINE 30 mg/dL (NEGATIVE); URINE SPECIFIC GRAVITY 1.025; UROBILINOGEN,URINE NEGATIVE mg/dL (<2.0)
[2019-07-12 11:55] LABS: COLOR,URINE DARK YELLOW
[2019-07-12] MEDS ORDERED: CEFTRIAXONE 1 GM/D5W RTU 1 GM/50 ML RTUPB IV ONE (12:52)
--- NOTE | 2019-07-12 12:53 | EKG REPORT ---
SEVERITY:- NORMAL ECG - SINUS RHYTHM : Confirmed by: Howard Forte MD 12-Jul-2019 12:51:56
--- NOTE | 2019-07-12 14:48 | RADIOLOGY REPORT (SQ) ---
EXAM DESCRIPTION: CT ABD/PELVIS NO ORAL OR IV COMPLETED DATE/TIME: 07/12/2019 2:18 pm REASON FOR STUDY: right flank pain COMPARISON: None. TECHNIQUE: CT scan of the abdomen and pelvis performed without intravenous or oral contrast. Images reviewed with lung, soft tissue, and bone windows. Reconstructed coronal and sagittal MPR images revi ewed. All images stored on PACS. All CT scanners at this facility use dose modulation, iterative reconstruction, and/or weight based d osing when appropriate to reduce radiation dose to as low as reasonably achievable (ALARA). [facility]: Dose Right [facility]: CareDose [facility]: Dose Right [facility]: Teradose 4D [facility]: Smart [employer] RADIATION DOSE: CT Rad equipment meets quality standard of care and radiation dose reduction techniq ues were employed. CTDIvol: 17.5 mGy. DLP: 989 mGy-cm.mGy. LIMITATIONS: None. FINDINGS: LOWER CHEST: 16 mm left lower lobe ground-glass nodule (series 4, image 2). Mitral annulu s calcifications. Small pericardial effusion. NON-CONTRASTED LIVER, SPLEEN, ADRENALS: Evaluation limited by lack of IV contrast. Indeterminate 28 x 25 mm right adrenal nodule (Hounsfield units on the noncontrast exam 37). No other identified sign ificant masses. Calcified splenic granuloma. PANCREAS: No masses. No peripancreatic inflammatory changes. GALLBLADDER: Surgically absent. RIGHT KIDNEY AND URETER: No suspicious masses. Assessment limited by lack of IV contrast. No signif icant calcifications. No hydronephrosis or hydroureter. LEFT KIDNEY AND URETER: No suspicious masses. Assessment limited by lack of IV contrast. Large exoph ytic cyst measuring 9.2 cm. No significant calcifications. No hydronephrosis or hydroureter. AORTA AND RETROPERITONEUM: No aneurysm. No retroperitoneal masses or adenopathy. BOWEL AND PERITONEAL CAVITY: No obvious masses or inflammatory changes. No free fluid. APPENDIX: Not visualized. PELVIS, BLADDER, AND ABDOMINAL WALL:None decompressed urinary bladder. No pelvic free fluid or adeno dannie. Left lateral flank fat containing hernia with a wide aperture measuring approximately 6.5 cm (series 3, image 41). BONES: No acute bony abnormality. No suspicious osseous lesions. Lower lumbar facet arthropathy. OTHER: No other significant finding. IMPRESSION: 1. Partially evaluated 16 mm left lower lobe ground-glass nodule possibly infectious/in flammatory. Recommend dedicated chest CT for complete characterization. 2. Indeterminate 28 x 25 mm right adrenal nodule. Recommend MRI or adrenal protocol CT for better c haracterization. 3. No evidence of nephrolithiasis or obstructive uropathy. 4. 9.2 cm left renal cyst. Fat containing left flank hernia, likely post surgical or traumatic rela katie. COMMENT: Fleischner Criteria for Ground Glass Nodules: >6mm ground glass single nodule: CT 6-12 mo Quality ID # [id number]: Final reports with documentation of one or more dose reduction techniques (e.g., Au tomated exposure control, adjustment of the mA and/or kV according to patient size, use of iterative reconstruction technique) TECHNICAL DOCUMENTATION: JOB ID: [id number] [employer]- All Rights Reserved Reading location - IP/workstation name: [email or web address]
--- NOTE | 2019-07-12 15:01 | RADIOLOGY REPORT (SQ) ---
EXAM DESCRIPTION: CT LT LOWER EXTREMITY WITHOUT COMPLETED DATE/TIME: 07/12/2019 2:18 pm REASON FOR STUDY: right leg pain COMPARISON: None. TECHNIQUE: CT scan of the right hip performed without intravenous or oral contrast. Images reviewed with soft tissue and bone windows. Reconstructed coronal and sagittal MPR images reviewed. All amalia ges stored on PACS. All CT scanners at this facility use dose modulation, iterative reconstruction, and/or weight based d osing when appropriate to reduce radiation dose to as low as reasonably achievable (ALARA). [facility]: Dose Right [facility]: CareDose [facility]: Dose Right [facility]: Teradose 4D [facility]: [employer] RADIATION DOSE: CT Rad equipment meets quality standard of care and radiation dose reduction techniq ues were employed. CTDIvol: 4.1 mGy. DLP: 210 mGy-cm. mGy. LIMITATIONS: None. FINDINGS: PELVIC BONES: No acute fracture. No worrisome bone lesions. VISUALIZED SPINE: No acute findings. RIGHT HIP: No acute fracture or dislocation. There is degenerative changes within moderate joint spa ce loss, osteophytosis and subchondral cystic change. PELVIC SOFT TISSUES: Decompressed urinary bladder. No discrete mass, adenopathy or free fluid. EXTRAPELVIC SOFT TISSUES: Vascular calcifications. OTHER: Tricompartment degenerative change at the knee. IMPRESSION: 1. No evidence of acute bony abnormality. 2. 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 TECHNICAL DOCUMENTATION: JOB ID: [id number] Quality ID # [id number]: Final reports with documentation of one or more dose reduction techniques (e.g., Au tomated exposure control, adjustment of the mA and/or kV according to patient size, use of iterative reconstruction technique) 2010 [employer]- All Rights Reserved Reading location - IP/workstation name: [email or web address]
--- NOTE | 2019-07-12 15:19 | XCELERA REPORT ---
[address] [facility] [address] Lower Extremity Venous Evaluation Procedure: Color flow and duplex imaging of the veins of the right lower extremity as well as the left Common Femoral vein. Right Sided Venous Evaluation Normal vessel filling wall to wall, compression and augmentation as well as Colour flow down to the infrageniculate veins. Left Sided Venous Evaluation The left common femoral vein is fully compressible. Spontaneous and phasic flow is present in the left common femoral vein. Interpretation Summary No duplex evidence of DVT or obstruction in the right lower extremity nor in the left Common Femoral vein. Normal vessel filling wall to wall, compression and augmentation as well as Colour flow down to the infrageniculate veins. Name: KAMERON PACE Age: 84 yrs Gender: Female : 1935 Patient Status: Emergency Patient Location: ER Study Date: 07/12/2019 12:53 PM Reason For Study: pain/swelling/right leg Ordering Physician: BRIDGETTE ANDERSON Performed By: Sandra Orozco : BRIDGETTE ANDERSON > Dorian Pike
[2019-07-12 16:19] VITALS: BP 133/83
--- NOTE | 2019-07-12 16:43 | ER Document Report ---
ED General - General Chief Complaint: Flank Pain Stated Complaint: RIGHT THIGH PAIN Time Seen by Provider: 07/12/19 10:55 Primary Care Provider: ANIL JASON NP [Primary Care Provider] - Follow up as needed Mode of Arrival: Medic Information source: Patient TRAVEL OUTSIDE OF THE [place] IN LAST 30 DAYS: No - HPI Notes: Patient complains of severe right medial thigh pain. It is worse with movement and better with rest. The pain does radiate up the right leg. She has not appreciated any swelling or rashes. She does not know of any injury. She states that she woke approximately 230 this morning with this pain and has been unable to get comfortable. She is had some mild right flank pain as well. She is unsure if the 2 pains are related. She has never had this kind of pain before. She does not know of any new exercises that she has been doing. No numbness. No problems with bowels or bladder. No vomiting or fevers. The pain is been severe and constant. - Related Data Allergies/Adverse Reactions: iodine Allergy (Verified 10/25/16 09:24) Penicillins Allergy (Verified 10/25/16 09:24) Past Medical History - General Information source: Patient - Social History Smoking Status: Former Smoker Chew tobacco use (# tins/day): No Frequency of alcohol use: None Drug Abuse: None Family History: Reviewed & Not Pertinent Patient has suicidal ideation: No Patient has homicidal ideation: No - Past Medical History Cardiac Medical History: Reports: Hx Hypercholesterolemia, Hx Hypertension Pulmonary Medical History: Reports: Hx COPD Endocrine Medical History: Comment Only: Hx Diabetes Mellitus Type 2 - prediabetes Renal/ Medical History: Denies: Hx Peritoneal Dialysis Psychiatric Medical History: Denies: Hx Depression Past Surgical History: Reports: Hx Abdominal Surgery - hernia repair, Hx Appendectomy, Hx Cholecystectomy, Hx Gynecologic Surgery - hysterectomy, Hx Hysterectomy, Hx Orthopedic Surgery - ankle - Immunizations Hx Diphtheria, Pertussis, Tetanus Vaccination: Yes Review of Systems - Review of Systems Constitutional: denies: Chills, Fever Cardiovascular: denies: Chest pain, Palpitations Respiratory: denies: Cough, Short of breath -: Yes All other systems reviewed and negative Physical Exam - Vital signs Vitals: Temp Pulse Resp BP Pulse Ox 97.2 F 58 L 18 113/73 96 07/12/19 10:15 07/12/19 10:15 07/12/19 10:15 07/12/19 10:15 07/12/19 10:15 Interpretation: Normal - General General appearance: Appears well, Alert - HEENT Head: Normocephalic, Atraumatic Eyes: Normal Pupils: PERRL - Respiratory Respiratory status: No respiratory distress Chest status: Nontender Breath sounds: Normal Chest palpation: Normal - Cardiovascular Rhythm: Regular Heart sounds: Normal auscultation Murmur: No - Abdominal Inspection: Normal Distension: No distension Bowel sounds: Normal Tenderness: Nontender Organomegaly: No organomegaly - Back Back: Normal, Nontender - Extremities General upper extremity: Normal inspection, Nontender, Normal color, Normal ROM, Normal temperature General lower extremity: Normal inspection, Tender - Patient's right medial thigh is tender just proximal to the knee joint. However inspection of this area is unremarkable., Normal color, Normal temperature, Other - Weightbearing and range of motion of the right leg is limited secondary to pain.. No: Jillian's sign - Neurological Neuro grossly intact: Yes Cognition: Normal Orientation: AAOx4 [place] Coma Scale Eye Opening: Spontaneous [place] Coma Scale Verbal: Oriented [place] Coma Scale Motor: Obeys Commands [place] Coma Scale Total: 15 Speech: Normal Motor strength normal: LUE, RUE, LLE, RLE Sensory: Normal - Psychological Associated symptoms: Normal affect, Normal mood - Skin Skin Temperature: Warm Skin Moisture: Dry Skin Color: Normal Course - Re-evaluation Re-evalutation: 07/12/19 16:41 Patient presents with right medial thigh pain. CT scan is unremarkable. Laboratories are unremarkable. Doppler to assess arterial flow is normal. Ultrasound to assess venous flow is also normal. Distally she is neurovascu larly intact and has a good dorsalis pedis pulse and can flex and extend all toes on the right foot. The color of the right leg is normal. There is no significant rash. I am unsure if the patient has a tendinitis or some type of muscle injury but there is no evidence of fracture, infection, neoplasm, clot, arterial insufficiency, or trauma. I did consult the hospitalist who saw the patient in the emergency department. We discussed admitting the patient possibly for pain control. The hospitalist did not feel that this would be beneficial for the patient. This was then relayed to the patient. Patient could bear weight on the leg and walk with assistance. Patient does have a walker at home. Patient will be discharged home with pain medication and instructed to follow-up with her doctor first thing in the morning. - Vital Signs Vital signs: Temp Pulse Resp BP Pulse Ox 97.2 F 58 L 11 L 133/83 H 98 07/12/19 10:15 07/12/19 10:15 07/12/19 16:03 07/12/19 16:03 07/12/19 16:03 - Laboratory Result Diagrams: 07/12/19 10:25 07/12/19 10:25 Laboratory results interpreted by me: 07/12/19 07/12/19 07/12/19 10:24 10:25 10:25 WBC 12.7 H Absolute Neuts (auto) 10.0 H Seg Neutrophils % 78.8 H Sodium 135.8 L Chloride 96 L BUN 22 H Est GFR ( Amer) 57 L Est GFR (MDRD) Non-Af 47 L Glucose 154 H POC Glucose 147 H Urine Protein Urine Ketones Urine Blood Urine Nitrite Ur Leukocyte Esterase 07/12/19 11:28 WBC Absolute Neuts (auto) Seg Neutrophils % Sodium Chloride BUN Est GFR ( Amer) Est GFR (MDRD) Non-Af Glucose POC Glucose Urine Protein 30 H Urine Ketones TRACE H Urine Blood SMALL H Urine Nitrite POSITIVE H Ur Leukocyte Esterase LARGE H - Diagnostic Test Radiology reviewed: Image reviewed, Reports reviewed Discharge - Discharge Clinical Impression: Right leg pain Condition: Stable Disposition: HOME, SELF-CARE Instructions: Leg Pain Nonspecific ([facility]) Additional Instructions: Please call your primary care doctor first thing in the morning to arrange follow-up. Prescriptions: Hydrocodone/Acetaminophen [[place] 5-325 mg Tablet] 1 tab PO Q6 PRN 3 Days #12 tablet PRN Reason: Referrals: ANIL JASON NP [Primary Care Provider] - Follow up tomorrow
--- NOTE | 2019-07-12 18:44 | PDOC CONSULTATION ---
Consultation Consult Date: 07/12/19 Attending physician:: BRIDGETTE ANDERSON Provider Consulted: ABDIFATAH STACY Consult reason:: right thigh pain. ? of myositis. History of Present Illness Admission Date/PCP: ANIL JASON NP Patient complains of: Right thigh pain History of Present Illness: KAMERON PACE is a 84 year old female presents with complaints of acute onset right thigh pain in the medial lower region of her right thigh which started this morning when she woke up from bed. The pain is described as throbbing and aching and was initially a 5/5 but now a 3/5 after receiving pain medication in the ER. Patient is able to bear weight on her leg. Patient denies any trauma to the area. She denies any involvement of the joints. The pain is worsened by movements involving the leg. Patient denies pain in any other muscle groups and denies involvement of the joints. Patient denies any rashes. Patient denies any previous episodes. Patient denies history of rheumatoid arthritis. Patient denies any recent viral illness. Patient states that pain in that region is the only pain she has. Past Medical History Cardiac Medical History: Reports: Hyperlipidema, Hypertension Pulmonary Medical History: Reports: Chronic Obstructive Pulmonary Disease (COPD) Endocrine Medical History: Comment Only: Diabetes Mellitus Type 2 - prediabetes Psychiatric Medical History: Denies: Depression Past Surgical History Past Surgical History: Reports: Appendectomy, Cholecystectomy, Hysterectomy, Orthopedic Surgery - ankle Social History Smoking Status: Former Smoker Electronic Cigarette use?: No Frequency of Alcohol Use: None Hx Recreational Drug Use: Yes Drugs: None Hx Prescription Drug Abuse: No Family History Family History: Reviewed & Not Pertinent Parental Family History Reviewed: Yes Children Family History Reviewed: NA Sibling(s) Family History Reviewed.: NA Medication/Allergy Home Medications: Aspirin [Aspirin 81 mg Chewable Tablet] 81 mg PO DAILY 07/12/19 Hyaluronate Sodium [Euflexxa] 20 mg IU FR@1000 07/12/19 Hydrocodone/Acetaminophen [[place] 5-325 mg Tablet] 1 tab PO Q6 PRN 3 Days #12 tablet 07/12/19 Ipratropium/Albuterol Sulfate [Combivent Respimat 4 gm Mdi] 1 puff IH QIDP PRN 07/12/19 Losartan Potassium [Cozaar 100 mg Tablet] 100 mg PO QHS 07/12/19 Metoprolol Succinate [Toprol Xl 25 mg Tab.sr] 25 mg PO DAILY 07/12/19 Multivitamin [Multiple Vitamins] 1 tab PO DAILY 07/12/19 Pravastatin Sodium [Pravachol] 40 mg PO QHS 07/12/19 Spironolact/Hydrochlorothiazid [Spironolactone-Hctz 25-25 Tab] 0.5 tab PO DAILY 07/12/19 Allergies/Adverse Reactions: iodine Allergy (Verified 10/25/16 09:24) Penicillins Allergy (Verified 10/25/16 09:24) Review of Systems Constitutional: ABSENT: chills, fever(s), night sweats, weakness Eyes: ABSENT: visual disturbances Nose, Mouth, and Throat: ABSENT: headache(s) Cardiovascular: ABSENT: chest pain Respiratory: ABSENT: dyspnea Gastrointestinal: ABSENT: abdominal pain, diarrhea, nausea, vomiting Genitourinary: ABSENT: hematuria Musculoskeletal: ABSENT: back pain, deformity, joint swelling, muscle weakness Integumentary: ABSENT: erythema, lesions, rash Neurological: ABSENT: confusion, focal weakness Hematologic/Lymphatic: ABSENT: easy bleeding, easy bruising Physical Exam Vital Signs: Temp Pulse Resp BP Pulse Ox 98.2 F 76 12 133/83 H 100 07/12/19 17:09 07/12/19 17:09 07/12/19 17:09 07/12/19 17:09 07/12/19 17:09 Intake & Output 07/11/19 07/12/19 07/13/19 06:59 06:59 06:59 Intake Total 50 Balance 50 Weight 98.43 kg General appearance: PRESENT: cooperative Neck exam: ABSENT: JVD Respiratory exam: PRESENT: clear to auscultation raheem, unlabored. ABSENT: tachypnea, wheezes Cardiovascular exam: PRESENT: +S1, +S2. ABSENT: clicks, tachycardia Musculoskeletal exam: PRESENT: full ROM, normal inspection, tenderness, other - Patient has focal tenderness in the medial lower region of her right thigh without erythema or significant swelling. Pain worsens with active movements of lower extremity against resistance tolerable and much mild with passive movements. No evidence of joint swelling. No other areas of pain noted in all the muscle groups throughout her body. Neurological exam: PRESENT: alert, awake Results Laboratory Results: 07/12/19 10:25 07/12/19 10:25 07/12/19 07/12/19 07/12/19 10:25 10:25 11:28 WBC 12.7 H RBC 4.13 Hgb 12.8 Hct 38.1 MCV 92 MCH 30.9 MCHC 33.5 RDW 13.4 Plt Count 310 Seg Neutrophils % 78.8 H Sodium 135.8 L Potassium 4.1 Chloride 96 L Carbon Dioxide 28 Anion Gap 12 BUN 22 H Creatinine 1.11 Est GFR ( Amer) 57 L Glucose 154 H Calcium 9.4 Total Bilirubin 0.6 AST 17 Alkaline Phosphatase 82 Total Protein 6.7 Albumin 3.7 Urine Color DARK YELLOW Urine Appearance CLOUDY Urine pH 5.0 Ur Specific Armstrong 1.025 Urine Protein 30 H Urine Glucose (UA) NEGATIVE Urine Ketones TRACE H Urine Blood SMALL H Urine Nitrite POSITIVE H Ur Leukocyte Esterase LARGE H Urine WBC (Auto) >182 Urine RBC (Auto) 13 Impressions: Abdomen/Pelvis CT 07/12/19 13:44 IMPRESSION: 1. Partially evaluated 16 mm left lower lobe ground-glass nodule possibly infectious/inflammatory. Recommend dedicated chest CT for complete characterization. 2. Indeterminate 28 x 25 mm right adrenal nodule. Recommend MRI or adrenal protocol CT for better characterization. 3. No evidence of nephrolithiasis or obstructive uropathy. 4. 9.2 cm left renal cyst. Fat containing left flank hernia, likely post surgical or traumatic related. Lower Extremity CT 07/12/19 13:44 IMPRESSION: 1. No evidence of acute bony abnormality. 2. 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 Assessment and Plan - Diagnosis (1) Right thigh pain Is this a current diagnosis for this admission?: Yes Plan: Right thigh pain is very focal and localized to the lower medial aspect of right thigh. There is no evidence of erythema to suggest cellulitis. There are no other muscle groups involved and no involvement of her proximal muscle groups and no weakness of her muscles and no systemic symptoms whatsoever and has an onset that is too acute to suggest myositis or other rheumatological process. Patient seems to be experiencing isolated muscle pain and possibly some tendinitis in that region. No remarkable CT findings of abscesses and unremarkable dopplers. At this time, I do not believe the patient needs admission onto the hospitalist service for management of these symptoms. You can consider discussing case with orthopedics as this is a problem with her musculature and possibly tendon and can consider getting an MRI of the area. I have discussed this with the ER physician. - Time Time Spent with patient: 35 or more minutes
== END 2019-07-12 17:09 | disposition home or self-care (01) ==
LOC: ER 10:13
DX: M79.604 Pain in right leg (principal); R10.9 Unspecified abdominal pain; M79.651 Pain in right thigh; Z87.891 Personal history of nicotine dependence; R73.03 Prediabetes; I10 Essential (primary) hypertension; J44.9 Chronic obstructive pulmonary disease, unspecified
CPT/HCPCS: 93005; 96376; 99284; 96375; 96365; 36415; 82962; 85025; 80053; 81001; 93971 ×2; 74176; 73700; 93010; J1885; J2270; J2405; J0696

== ENCOUNTER → 2020-02-23 | Day surgery (SDC) | payer OTHER ==
[~2020-02-23] MED LIST: BUPIVACAINE HCL 0.5 % INJ/PF 30 ML SDV ONE; LIDOCAINE 1% INJ-PF (10 MG/ML) 30 ML SDV ONE; LIDOCAINE 2% INJ (20 MG/ML) 20 ML MDV ONE; TRIAMCINOLONE ACETONIDE INJ 40 MG/1 ML VIAL ONE
--- NOTE | 2020-02-23 10:19 | Operative Report ---
Operative Report DATE OF SURGERY: 02/23/20 PREOPERATIVE DIAGNOSIS: Right hip primary osteoarthritis POSTOPERATIVE DIAGNOSIS: Right hip primary osteoarthritis OPERATION: Fluoroscopically guided intra-articular right hip injection SURGEON: KAMERON WOODRUFF JR ANESTHESIA: Local COMPLICATIONS: None ESTIMATED BLOOD LOSS: None PROCEDURE: Patient is been having severe right pain that is debilitating. We discussed risks and benefits in the office and the patient agreed to proceed with a hip injection. This serves the purpose of both being diagnostic as well as therapeutic and helping to determine the source of their pain. They understood and after signing operative informed consent we proceeded with a hip injection in the hospital under fluoroscopic guidance. The patient was brought into the fluoroscopic suite and laid supine on the table. The site was marked and prepped in standard sterile fashion. A timeout was performed. Approximately 2 cc of lidocaine were utilized to anesthetize the injection site. Following this a 22-gauge spinal needle was introduced into the right hip joint and confirmed with fluoroscopy. Contrast dye was injected and found to be intracapsular. Following this 1 mL of 40 g of Kenalog in conjunction with 1 cc of 2% lidocaine and 1 cc of quarter percent Marcaine were injected into the hip. A sterile Band-Aid was then placed and the patient was assisted off the fluoroscopic table. They tolerated the procedure well. Immediately following the procedure the patient reported near complete pain rel ief.
--- NOTE | 2020-02-23 11:08 | RADIOLOGY REPORT (SQ) ---
EXAM DESCRIPTION: INJECT/ASPIR HIP/SHLDR/KNEE; FLUORO/NEEDLE PLACEMENT IMAGES COMPLETED DATE/TIME: 02/23/2020 8:27 am REASON FOR STUDY: UNILATERAL PRIMARY OSTEOARTHRITIS, RIGHT HIP M16.11 UNILATERAL PRIMARY OSTEOARTHR ITIS, RIGHT HIP COMPARISON: None. FLUOROSCOPY TIME: Not recorded by technologist. 2 images saved to PACS. TECHNIQUE: Intra-operative images acquired during surgical procedure to evaluate progress. NUMBER OF IMAGES: 2 LIMITATIONS: None. FINDINGS: Spinal needle overlies the right hip joint. IMPRESSION: IMAGE(S) OBTAINED DURING PROCEDURE. COMMENT: Quality ID [id number]: Final reports for procedures using fluoroscopy that document radiation exp osure indices, or exposure time and number of fluorographic images (if radiation exposure indices are not available) Please consult full operative report of the attending physician for description of the procedure. TECHNICAL DOCUMENTATION: JOB ID: [id number] 2010 [facility]- All Rights Reserved Reading location - IP/workstation name: [email or web address]
--- NOTE | 2020-02-23 11:08 | RADIOLOGY REPORT (SQ) ---
EXAM DESCRIPTION: INJECT/ASPIR HIP/SHLDR/KNEE; FLUORO/NEEDLE PLACEMENT IMAGES COMPLETED DATE/TIME: 02/23/2020 8:27 am REASON FOR STUDY: UNILATERAL PRIMARY OSTEOARTHRITIS, RIGHT HIP M16.11 UNILATERAL PRIMARY OSTEOARTHR ITIS, RIGHT HIP COMPARISON: None. FLUOROSCOPY TIME: Not recorded by technologist. 2 images saved to PACS. TECHNIQUE: Intra-operative images acquired during surgical procedure to evaluate progress. NUMBER OF IMAGES: 2 LIMITATIONS: None. FINDINGS: Spinal needle overlies the right hip joint. IMPRESSION: IMAGE(S) OBTAINED DURING PROCEDURE. COMMENT: Quality ID [id number]: Final reports for procedures using fluoroscopy that document radiation exp osure indices, or exposure time and number of fluorographic images (if radiation exposure indices are not available) Please consult full operative report of the attending physician for description of the procedure. TECHNICAL DOCUMENTATION: JOB ID: [id number] 2010 [employer]- All Rights Reserved Reading location - IP/workstation name: [email or web address]
== END ==
LOC: RAD 07:35
PROVIDERS: ATTEND Orthopaedic Surgery
DX: M16.11 Unilateral primary osteoarthritis, right hip (principal)
CPT/HCPCS: 20610; 77002; J3490 ×3; J3301

== ENCOUNTER 2020-03-22 18:23 | Emergency (ER) | payer OTHER ==
--- NOTE | 2020-03-22 18:50 | ER Document Report ---
ED Medical Screen (RME) - General Chief Complaint: Thigh Pain Stated Complaint: RIGHT THIGH PAIN Time Seen by Provider: 03/22/20 18:41 Primary Care Provider: KAMERON WOODRUFF JR, DO [Primary Care Provider] - Follow up as needed Mode of Arrival: Wheelchair Information source: Patient, Emergency Med Personnel Notes: Patient is a 85-year-old female was brought in by EMS and placed in triage. Patient was sitting up there and became diaphoretic and felt like she is in a pass out. Front to bring her back and evaluate her. On evaluation patient states that she started with right thigh pain in June of last year. She is seen orthopedics has had a recent steroid injection into the hip area last month and her pain is to the point where she is unable to lift or move her right leg. She states that she is getting lightheaded and dizzy secondary to the discomfort and pain. It was also noted that she was given fentanyl by EMS on her trip into the ER. Physical examination: Patient is a well-nourished well-developed obese 85-year-old female who is diaphoretic clammy and pale on examination. Cardiac: Regular rate and rhythm no no murmurs are noted on auscultation of the heart. Lungs: Bilateral breath sounds decreased throughout no rhonchi rales or wheeze are heard. Lower extremities examination of patient's lower extremities shows that she is unable to lift her right leg. She is leaning forward diaphoretic and getting more dizzy as the moment goes on. She does display good sensation from the inner ankles to cessation of pinprick to the groin as she does from the outer ankles to the hips. She appears to have some strength in her lower extremities ankle and feet bilaterally. But the weight against gravity is impossible her move her right side. I have greeted and performed a rapid initial assessment of this patient. A comprehensive ED assessment and evaluation of the patient, analysis of test results and completion of the medical decision making process will be conducted by additional ED providers. Dictation of this chart was performed using voice recognition software; therefore, there may be some unintended grammatical errors. TRAVEL OUTSIDE OF THE [place] IN LAST 30 DAYS: No - Related Data Allergies/Adverse Reactions: iodine Allergy (Verified 10/25/16 09:24) Penicillins Allergy (Verified 10/25/16 09:24) Past Medical History - Past Medical History Cardiac Medical History: Reports: Hx Hypercholesterolemia, Hx Hypertension Pulmonary Medical History: Reports: Hx COPD Endocrine Medical History: Comment Only: Hx Diabetes Mellitus Type 2 - pred iabetes Renal/ Medical History: Denies: Hx Peritoneal Dialysis Psychiatric Medical History: Denies: Hx Depression Past Surgical History: Reports: Hx Abdominal Surgery - hernia repair, Hx Appendectomy, Hx Cholecystectomy, Hx Gynecologic Surgery - hysterectomy, Hx Hysterectomy, Hx Orthopedic Surgery - ankle - Immunizations Hx Diphtheria, Pertussis, Tetanus Vaccination: Yes Physical Exam - Vital signs Vitals: Temp Pulse Resp BP Pulse Ox 98.3 F 79 18 169/71 H 97 03/22/20 18:28 03/22/20 18:28 03/22/20 18:28 03/22/20 18:28 03/22/20 18:28 Course - Vital Signs Vital signs: Temp Pulse Resp BP Pulse Ox 98.3 F 79 18 169/71 H 97 03/22/20 18:28 03/22/20 18:28 03/22/20 18:28 03/22/20 18:28 03/22/20 18:28 Doctor's Discharge - Discharge Referrals: KAMERON WOODRUFF JR, DO [Primary Care Provider] - Follow up as needed
[2020-03-22 19:41] LABS: ABSOLUTE LYMPHOCYTES (AUTO) 0.8 10^3/uL (0.5-4.7); ABSOLUTE MONOCYTES (AUTO) 0.7 10^3/uL (0.1-1.4); ABSOLUTE NEUT (AUTO) 9.6 10^3/uL (1.7-8.2); BASOPHILS % (AUTO) 0.3 % (0-2); EOSINOPHILS % (AUTO) 0.1 % (0-6); HEMOGLOBIN 12.2 g/dL (12.0-15.5); LYMPHOCYTES % (AUTO) 7.5 % (13-45); MEAN CORPUSCULAR HEMOGLOBIN 30.2 pg (27.0-33.4); MEAN CORPUSCULAR HGB CONC 32.9 g/dL (32.0-36.0); MEAN CORPUSCULAR VOLUME 92 fl (80-97); PLATELET COUNT 297 10^3/uL (150-450); RED BLOOD COUNT 4.03 10^6/uL (3.72-5.28); RED CELL DISTRIBUTION WIDTH 12.9 % (11.5-14.0); SEGMENTED NEUTROPHILS % (AUTO) 86.1 % (42-78); TOTAL CELLS COUNTED % (AUTO) 100 %; WHITE BLOOD COUNT 11.2 10^3/uL (4.0-10.5)
[2020-03-22 19:57] LABS: ALBUMIN 3.8 g/dL (3.5-5.0); ALKALINE PHOSPHATASE 95 U/L (38-126); ANION GAP 7 (5-19); ASPARTATE AMINO TRANSFERASE 19 U/L (14-36); BILIRUBIN,TOTAL 0.3 mg/dL (0.2-1.3); BLOOD UREA NITROGEN 13 mg/dL (7-20); CALCIUM 8.7 mg/dL (8.4-10.2); CARBON DIOXIDE 29 mmol/L (22-30); CHLORIDE 99 mmol/L (98-107); GLUCOSE 174 mg/dL (75-110); POTASSIUM 3.9 mmol/L (3.6-5.0); TOTAL PROTEIN 6.5 g/dL (6.3-8.2)
[2020-03-22] MEDS ORDERED: MORPHINE SULFATE 10 MG/ML INJ IV ONE (20:28)
[2020-03-22] MEDS ORDERED: ONDANSETRON HCL INJ/PF 4 MG/2 ML SDV IV ONE (20:29)
--- NOTE | 2020-03-22 20:33 | ER Document Report ---
ED General - General Chief Complaint: Leg Pain Stated Complaint: RIGHT THIGH PAIN Time Seen by Provider: 03/22/20 18:41 Primary Care Provider: KAMERON WOODRUFF JR, DO [Primary Care Provider] - Follow up tomorrow Mode of Arrival: Wheelchair Notes: Patient is an 85-year-old female that comes emergency department for chief complaint of right hip and right thigh pain. Patient stated her right upper thigh area started having shooting severe pain this morning, she states that she took cyclobenzaprine 10 mg in 2 separate doses today but it does not seem to help. She states that she intermittently gets the same pain and occasionally it comes severe. She actually had a right hip injection several weeks ago with Dr. Woodruff orthopedics. She states that he told her she needs a hip replacement but she is trying to avoid this. She is not on chronic pain medication. She denies recent injury. EMS gave patient a dose of fentanyl and apparently she became diaphoretic and felt lightheaded and triage, she denies feeling lightheaded now, she denies chest pain, dizziness, vomiting, fever. Patient lives at home by herself. TRAVEL OUTSIDE OF THE [place] IN LAST 30 DAYS: No - Related Data Allergies/Adverse Reactions: iodine Allergy (Verified 10/25/16 09:24) Penicillins Allergy (Verified 10/25/16 09:24) Past Medical History - General Information source: Patient, Emergency Med Personnel - Social History Smoking Status: Never Smoker Frequency of alcohol use: None Drug Abuse: None Lives with: Family Family History: Reviewed & Not Pertinent - Past Medical History Cardiac Medical History: Reports: Hx Hypercholesterolemia, Hx Hypertension Pulmonary Medical History: Reports: Hx COPD Endocrine Medical History: Comment Only: Hx Diabetes Mellitus Type 2 - prediabetes Renal/ Medical History: Denies: Hx Peritoneal Dialysis Psychiatric Medical History: Denies: Hx Depression Past Surgical History: Reports: Hx Abdominal Surgery - hernia repair, Hx Appendectomy, Hx Cholecystectomy, Hx Gynecologic Surgery - hysterectomy, Hx Hysterectomy, Hx Orthopedic Surgery - ankle - Immunizations Hx Diphtheria, Pertussis, Tetanus Vaccination: Yes Review of Systems - Review of Systems Constitutional: No symptoms reported EENT: No symptoms reported Cardiovascular: No symptoms reported Respiratory: No symptoms reported Gastrointestinal: No symptoms reported Genitourinary: No symptoms reported Female Genitourinary: No symptoms reported Musculoskeletal: See HPI Skin: No symptoms reported Hematologic/Lymphatic: No symptoms reported Neurological/Psychological: No symptoms reported Physical Exam - Vital signs Vitals: Temp Pulse Resp BP Pulse Ox 98.3 F 79 18 169/71 H 97 03/22/20 18:28 03/22/20 18:28 03/22/20 18:28 03/22/20 18:28 03/22/20 18:28 - Notes Notes: GENERAL: Alert and interactive but appears uncomfortable and keeps shifting her position HEAD: Normocephalic, atraumatic. EYES: Pupils equal, round, and reactive to light. Extraocular movements intact. ENT: Oral mucosa moist, tongue midline. Oropharynx unremarkable. Airway patent. NECK: Full range of motion. Supple. Trachea midline. No lymphadenopathy. LUNGS: Clear to auscultation bilaterally, no wheezes, rales, or rhonchi. No respiratory distress. Non-tender chest wall. HEART: Regular rate and rhythm. No murmur ABDOMEN: Soft, non-tender. Non-distended. No signs of trauma. EXTREMITIES: Patient with pain with palpation over the right proximal thigh extending to the mid proximal thigh with wincing and tight muscles. There is no swelling, trauma, erythema, or extreme pain. Normal distal neurovascular exam, normal range of motion of the hip but this is performed with some pain. Normal distal pulses and capillary refill, normal distal sensation. Unremarkable extremities otherwise. BACK: no cervical, thoracic, lumbar midline tenderness. No saddle anesthesia, normal distal neurovascular exam. Moves all extremities in full range of motion. NEUROLOGICAL: Alert and oriented x3. Normal speech. Cranial nerves II through XII grossly intact. Strength 5/5 in all extremities. PSYCH: Normal affect, normal mood. SKIN: Warm, dry, normal turgor. No rashes or lesions noted. Course - Re-evaluation Re-evalutation: Patient with clear pain on exam which is palpable and reproducible with motion. Patient has had these same symptoms previously and she reports to me that her orthopedic surgeon Dr. Woodruff recommended she have a hip replacement but she has declined up to this point. Patient had a hip injection in the same hip almost 1 month ago. Patient does not have a fever here, she does not have any other complaints. No evidence of infection or trauma noted on my exam. CBC shows my leukocytosis, ESR and CRP are mildly elevated, x-ray shows degenerative changes but no acute findings. On reevaluation patient is improved, she is asking for additional pain medication, she was given oral pain medication this time. Patient had diaphoresis and dizziness in triage but she has had 2 negative troponins, unremarkable EKG, and nonspecific work-up otherwise. I suspect this was secondary to the fentanyl that she received by EMS. I discussed the patient's details and discussed disposition with Dr. Stewart. No additional recom mendation at this time, she recommends pain management and patient call her orthopedic surgeon tomorrow as long as she can ambulate. Patient ambulated without difficulty, she states she did very well with hydrocodone last time and she was provided with this. Discussed return precautions. Patient states understanding and agreement. Stable and well-appearing at time of discharge. - Vital Signs Vital signs: Temp Pulse Resp BP Pulse Ox 98.3 F 79 19 150/78 H 95 03/22/20 18:28 03/22/20 18:28 03/22/20 22:02 03/22/20 22:02 03/22/20 22:02 - Laboratory Result Diagrams: 03/22/20 19:15 03/22/20 19:15 Laboratory results interpreted by me: 03/22/20 03/22/20 03/22/20 19:15 19:15 19:15 WBC 11.2 H Lymph % (Auto) 7.5 L Absolute Neuts (auto) 9.6 H Seg Neutrophils % 86.1 H ESR 53 H Sodium 135.0 L Est GFR (MDRD) Non-Af 59 L Glucose 174 H C-Reactive Protein 03/22/20 19:15 WBC Lymph % (Auto) Absolute Neuts (auto) Seg Neutrophils % ESR Sodium Est GFR (MDRD) Non-Af Glucose C-Reactive Protein 36.3 H - EKG Interpretation by Me Additional EKG results interpreted by me: EKG shows sinus rhythm at a rate of 75, QTC of 465, OH interval of 184, no T wave inversions or T-segment changes in consecutive leads. Discharge - Discharge Clinical Impression: Right leg pain Condition: Stable Disposition: HOME, SELF-CARE Additional Instructions: Your pain in your leg appears to be radiating from your arthritis in your hip. You have been provided with pain medication to take for severe pain, take Tyle nol for regular pain. Take the stool softener if you take the stronger medication to avoid constipation. Rest your leg as much as possible over the next couple of days. Call your orthopedic provider tomorrow for additional management and discussion of different treatment options because of your ongoing problems with your hip. Return if you worsen including developing redness, swelling, severe worsening pain, fever, vomiting, or any other concerning symptoms. Prescriptions: Polyethylene Glycol 3350 [Miralax Powder 17 gm/Packet] 1 packet PO DAILY PRN #1 pkg PRN Reason: Hydrocodone/Acetaminophen [[place] 5-325 mg Tablet] 1 - 2 tab PO Q6H PRN #12 tablet PRN Reason: Referrals: KAMERON WOODRUFF JR, DO [Primary Care Provider] - Follow up tomorrow
--- NOTE | 2020-03-22 21:39 | RADIOLOGY REPORT (SQ) ---
EXAM DESCRIPTION: X-ray right hip two views and AP view pelvis COMPLETED DATE/TME: 03/22/2020 20:29 CLINICAL HISTORY: 85 years, Female, right hip and thigh pain COMPARISON: None. FINDINGS: No fracture or dislocation. Joint space narrowing and sclerosis on the right hip joint. Femoral head contour is maintained bilaterally. There are a few vascular calcifications in the proximal superficial femoral artery bilaterally. IMPRESSION: No acute abnormality. Degenerative joint changes in the right hip.
[2020-03-22 22:23] VITALS: BP 150/78
[2020-03-22] MEDS ORDERED: OXYCODONE HCL IR 5 MG TABLET PO ONE (23:17)
[2020-03-23] MEDS ORDERED: HYDROCODONE/ACETAMINOPHEN 5-325 MG (6 TAB/ER DISP) PO PRN (02:28)
--- NOTE | 2020-03-23 10:11 | EKG REPORT ---
SEVERITY:- ABNORMAL ECG - SINUS RHYTHM NONSPECIFIC INTRAVENTRICULAR CONDUCTION DELAY : Confirmed by: Rasta Delgado 23-Mar-2020 10:09:46
== END 2020-03-23 07:33 | disposition home or self-care (01) ==
LOC: ER 18:23
DX: M79.604 Pain in right leg (principal); M79.651 Pain in right thigh; M25.551 Pain in right hip; Z79.899 Other long term (current) drug therapy; Z88.0 Allergy status to penicillin; Z88.8 Allergy status to other drugs, medicaments and biological substances; I10 Essential (primary) hypertension; E11.9 Type 2 diabetes mellitus without complications; J44.9 Chronic obstructive pulmonary disease, unspecified
CPT/HCPCS: 93005; 99285; 96372; 96374; 36415; 85025; 85652; 86140; 80053; 84484; 73502; 93010; J2270; J2405; A9270

== ENCOUNTER → 2020-07-12 | Outpatient (CLI) | payer OTHER ==
[2020-07-12 11:57] LABS: C-REACTIVE PROTEIN 8.5 mg/L (<10.0); URIC ACID 5.7 mg/dL (2.5-7.5)
== END ==
LOC: OD 10:19
PROVIDERS: ATTEND Orthopaedic Surgery
DX: M16.11 Unilateral primary osteoarthritis, right hip (principal)
CPT/HCPCS: 36415; 83516; 84550; 85652; 86038; 86140; 86200; 86256; 86431; 86617; 86618